=== PATIENT | female | born 1935 | race Caucasian/White ===

== ENCOUNTER 2016-12-28 18:22 | Emergency (ER) | payer OTHER, BC ==
[2016-12-28 18:32] VITALS: TEMP 97.5
[2016-12-28] MEDS ORDERED: ONDANSETRON 4 MG/2 ML VIAL IVP ONE (18:36)
[2016-12-28] MEDS ORDERED: METOCLOPRAMIDE 10 MG/2 ML VIAL IVP ONE (19:07)
--- NOTE | 2016-12-28 19:38 | EDPHY ---
H & P Stated Complaint: vertigo, nausea/vomiting Time Seen by Provider: 12/28/16 19:16 HPI/ROS: CHIEF COMPLAINT: Dizziness HISTORY OF PRESENT ILLNESS: The patient is a 81 year old female presenting with sudden onset of dizziness. The patient describes the dizziness as if her head is moving. She has associated nausea with 1 episode of emesis. The patient experienced similar symptoms 3 weeks ago. She saw an ENT who diagnosed her with a viral ear infection. The patient took 2 Meclizine prior to arrival, but felt no improvement. The symptoms actually developed from the patient was doing her vestibular therapy, sounds like she was actually doing a Ari maneuver. The patient states her blood pressure tends to rise during episodes of vertigo. She has no history of strokes. No neck pain. She denies chest pain, shortness of breath, palpitations, lightheadedness, or headache. REVIEW OF SYSTEMS: Aside from elements discussed in the HPI, a comprehensive 10-point review of systems was reviewed and is negative. PAST MEDICAL HISTORY: Hypertension, Vertigo SOCIAL HISTORY: Lives independently. VITAL SIGNS: Reviewed by me GENERAL: Uncomfortable appearing, holding her head study, looking down. HEENT: Atraumatic. Eyes: Nystagmus laterally, worse when looking to right, with a slight rotary nystagmus. Ears: Tympanic membranes are clear. Mouth: moist mucous membranes. No erythema or lesions. Neck: supple with no adenopathy. No carotid bruits. LUNGS: Clear to auscultation bilaterally, no wheezes, rhonchi or rales. CARDIAC: Regular rate and rhythm, no rubs, murmurs or gallops. ABDOMEN: Soft, nontender, nondistended, bowel sounds normal. BACK: No CVA tenderness. EXTREMITIES: No trauma. No edema. Range of motion is normal throughout. NEURO: Alert and oriented, grossly nonfocal. Motor strength 5/5. Finger-nose normal. (Normal gait, tested after receiving meclizine and Valium.) SKIN: Warm and dry, no rash. PSYCHIATRIC: Normal mentation, no agitation. Portions of this note were transcribed by a medical technologist prn. I personally performed a history, physical exam, medical decision making, and confirmed accuracy of information the transcribed note. - Medical/Surgical History Hx Asthma: No Hx Chronic Respiratory Disease: No Hx Diabetes: No Hx Cardiac Disease: No Hx Renal Disease: No Hx Cirrhosis: No Hx Alcoholism: No Hx HIV/AIDS: No Hx Splenectomy or Spleen Trauma: No Other PMH: Vertigo, HTN - Social History Smoking Status: Never smoked Constitutional: Initial Vital Signs Temperature (C) 36.4 C 12/28/16 18:31 Heart Rate 66 12/28/16 18:31 Respiratory Rate 14 12/28/16 18:31 Blood Pressure 212/112 H 12/28/16 18:31 O2 Sat (%) 98 12/28/16 18:31 O2 Delivery Mode Room Air Allergies/Adverse Reactions: No Known Allergies Allergy (Unverified 12/28/16 18:29) Home Medications: Medication Instructions Recorded Aspirin 12/28/16 Metoprolol Tartrate 12/28/16 Pravastatin Sodium 12/28/16 Triamterene-Hctz 37.5-25 mg Cp 12/28/16 Valium 12/28/16 Medical Decision Making ED Course/Re-evaluation: Patient is hypertensive at 212/112. She received 25mg Meclizine PO. IV was established. Patient received 5mg Valium IV and 4mg Zofran IV. The patient received an additional 10mg of Reglan for nausea. 9:15 p.m.: I reevaluated the patient, she is feeling much better. States her dizziness has resolved. Patient was ambulatory with no difficulty. Labs largely unremarkable. Will discharge the patient with instructions to follow up with her vestibular therapist, continue to use meclizine and Valium, and to return to the emergency department as needed. Differential Diagnosis: Differential diagnosis of the patient's dizziness was considered including but not limited to peripheral and central causes of vertigo, cardiac arrhythmias, cardiac ischemia, electrolyte disturbances, neurologic causes, orthostatic causes including dehydration, and blood loss. - Data Points Laboratory Results: Laboratory Results 12/28/16 20:10 12/28/16 20:10 12/28/16 12/28/16 20:10 20:10 WBC 10.96 10^3/uL H 10^3/uL (3.80-9.50) RBC 5.09 10^6/uL 10^6/uL (4.18-5.33) Hgb 16.4 g/dL H g/dL (12.6-16.3) Hct 47.0 % % (38.0-47.0) MCV 92.3 fL fL (81.5-99.8) MCH 32.2 pg pg (27.9-34.1) MCHC 34.9 g/dL g/dL (32.4-36.7) RDW 13.0 % % (11.5-15.2) Plt Count 184 10^3/uL 10^3/uL (150-400) MPV 11.0 fL fL (8.7-11.7) Neut % (Auto) 79.9 % H % (39.3-74.2) Lymph % (Auto) 15.9 % % (15.0-45.0) [place] % (Auto) 2.8 % L % (4.5-13.0) Eos % (Auto) 0.6 % % (0.6-7.6) Baso % (Auto) 0.5 % % (0.3-1.7) Nucleat RBC Rel Count 0.0 % % (0.0-0.2) Absolute Neuts (auto) 8.75 10^3/uL H 10^3/uL (1.70-6.50) Absolute Lymphs (auto) 1.74 10^3/uL 10^3/uL (1.00-3.00) Absolute Monos (auto) 0.31 10^3/uL 10^3/uL (0.30-0.80) Absolute Eos (auto) 0.07 10^3/uL 10^3/uL (0.03-0.40) Absolute Basos (auto) 0.06 10^3/uL 10^3/uL (0.02-0.10) Absolute Nucleated RBC 0.00 10^3/uL 10^3/uL (0-0.01) Immature Gran % 0.3 % % (0.0-1.1) Immature Gran # 0.03 10^3/uL 10^3/uL (0.00-0.10) Sodium 137 mEq/L mEq/L (134-144) Potassium 4.1 mEq/L mEq/L (3.5-5.2) Chloride 100 mEq/L mEq/L (97-110) Carbon Dioxide 25 mEq/l mEq/l (22-31) Anion Gap 12 mEq/L mEq/L (8-16) BUN 18 mg/dL mg/dL (7-23) Creatinine 0.9 mg/dL mg/dL (0.6-1.0) Estimated GFR > 60 Glucose 145 mg/dL H mg/dL (70-100) Calcium 10.2 mg/dL mg/dL (8.5-10.4) Troponin I < 0.012 ng/mL ng/mL (0-0.034) Medications Given: Discontinued Medications Diazepam (Valium Injection) 5 mg IVP EDNOW ONE Stop: 12/28/16 19:58 Last Admin: 12/28/16 20:10 Dose: 5 mg Meclizine HCl (Meclizine Hcl) 25 mg PO EDNOW ONE Stop: 12/28/16 19:58 Last Admin: 12/28/16 20:16 Dose: 25 mg Metoclopramide HCl (Reglan Injection) 10 mg IVP EDNOW ONE Stop: 12/28/16 19:08 Last Admin: 12/28/16 19:15 Dose: 10 mg Ondansetron HCl (Zofran) 4 mg IVP EDNOW ONE Stop: 12/28/16 18:37 Last Admin: 12/28/16 18:41 Dose: 4 mg Departure - Departure Disposition: Home, Routine, Self-Care Clinical Impression: Vertigo Condition: Good Instructions: Vertigo (ED) Additional Instructions: #1. Take Valium as need. This may be helpful for severe cases of vertigo. #2 Take Meclizine as directed. I would consider taking several doses on a regular basis for the next 1-2 days to keep the vertigo from recurring. #3. Followup with your vestibular therapist if your symptoms return. Be sure to discussed with the therapist that this episode of vertigo developed while doing Ari maneuver. Referrals: Diamond Cabrera MD [Primary Care Provider] - As per Instructions Report Scribed for: Lucia Francis Report Scribed by: Dacrie Veliz Date of Report: 12/28/16 Time of Report: 19:46
[2016-12-28] MEDS ORDERED: MECLIZINE HCL 25 MG TAB PO ONE (19:57)
[2016-12-28] MEDS ORDERED: DIAZEPAM 10 MG/2 ML SYR IVP ONE (19:57)
[2016-12-28 20:21] LABS: % IMMATURE GRANULYOCYTES 0.3 % (0.0-1.1); ABSOLUTE IMMATURE GRANULOCYTES 0.03 10^3/uL (0.00-0.10); ADD DIFF? NO; ADD MORPH? NO; ADD SCAN? NO; ATYPICAL LYMPHOCYTE FLAG 0 (0-99); FRAGMENT RBC FLAG 0 (0-99); HEMOGLOBIN 16.4 g/dL (12.6-16.3); LEFT SHIFT FLG 0 (0-99); LIPEMIA HEMOLYSIS FLAG 90 (0-99); MEAN CELL HEMOGLOBIN 32.2 pg (27.9-34.1); MEAN CELL HEMOGLOBIN CONCENTR. 34.9 g/dL (32.4-36.7); MEAN CELL VOLUME 92.3 fL (81.5-99.8); PLATELET CLUMPS FLAG 10 (0-99); PLATELET COUNT 184 10^3/uL (150-400); RED BLOOD CELL COUNT 5.09 10^6/uL (4.18-5.33)
[2016-12-28 20:31] LABS: ANION GAP 12 mEq/L (8-16); CALCIUM 10.2 mg/dL (8.5-10.4); CARBON DIOXIDE 25 mEq/l (22-31); CHLORIDE 100 mEq/L (97-110); CREATININE 0.9 mg/dL (0.6-1.0); GLOMERULAR FILTRATION RATE > 60; GLUCOSE 145 mg/dL (70-100); POTASSIUM 4.1 mEq/L (3.5-5.2); SODIUM 137 mEq/L (134-144)
[2016-12-28 20:43] LABS: TROPONIN I < 0.012 ng/mL (0-0.034)
[2016-12-28 21:50] VITALS: BP 173/95; PULSE 60; RESP 16; O2SAT 93
== END 2016-12-28 21:50 | disposition home or self-care (01) ==
LOC: EDUNIT# → EDBD
DX: R42 Dizziness and giddiness (principal); I10 Essential (primary) hypertension; Z79.82 Long term (current) use of aspirin
CPT/HCPCS: 96374; 96375; 99284; J2405; J2765